=== PATIENT | female | born 1935 | race Caucasian/White ===

== ENCOUNTER 2017-09-27 19:02 | Emergency (ER) | payer OTHER ==
--- NOTE | 2017-09-27 19:43 | DR.GENAD ---
HPI - PCP Primary Care Physician: richar - HPI Comment HPI Comment: No hx trauma, pt states its been swollen for a long time. Pain only when pressed. 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 FINGER IS SWOLLEN AT THE KNUCKLE - Nurses notes reviewed Nurses Notes Review: Yes - Source History Provided: Patient, Group Home - Mode of Arrival Mode of Arrival: Wheelchair - Timing Onset of Chief Complaint: 09/25/17 Came on: Gradually - Duration Duration: Since Onset - Severity Severity: Moderate PMH - PMH Past Medical History: Yes Past Medical History: Arthritis, Dementia, Hypertension, Hypothyroidism Past Surgical History: Yes Surgical History: Hysterectomy, Ortho Surgery (RIGHT KNEE) - Family History History of Family Medical Conditions: Yes Family Medical History: Diabetes Mellitus - Social History Alcohol Use: None Do you use any recreational Drugs:: No Lives With: Other Lives Where: Group Home - infectious screening In the last 2 months have you had wt loss of >10#?: NO Have you had fever, night sweats or hemotysis?: No Have you traveled outside the country in the last 6 months?: No Isolation: Standard ROS - Review of Systems Constitutional: No Symptoms Reported Eyes: No Symptoms Reported ENTM: No Symptoms Reported Respiratoy: No Symptoms Reported Cardiovascular: No Symptoms Reported Gastrointestinal/Abdominal: No Symptoms Reported Genitourinary: No Symptoms Reported Neurological: No Symptoms Reported Musculoskeletal: No Symptoms Reported (of left index finger only), Joint Pain, Joint Swelling Integumentary: No Symptoms Reported Hematologic/Lymphatic: No Symptoms Reported Endocrine: No Symptoms Reported Psychiatric: No Symptoms Reported All Other Systems: Reviewed and Negative PE - Vital Signs Vitals: Temperature 98 F Pulse Rate 82 Respiratory Rate 18 Blood Pressure [Left Arm] 141/97 Blood Pressure [Right Arm] 150/87 Blood Pressure 106/73 O2 Sat by Pulse Oximetry 97 - General Limitations: No Limitations General Appearance: Alert, In No Apparent Distress - Head Head Exam: Normal Inspection - Eyes Eye exam: Normal Appearance - ENT ENT Exam: Normal Exam - Neck Neck Exam: Normal Inspection - Chest Chest Inspection: Normal Inspection - Respiratory Respiratory Exam: Normal Lung Sounds Bilat Respiratory Exam: Bilateral Clear to Auscultation - Cardiovascular Cardiovascular Exam: Regular Rate - Abdominal Exam Abdominal Exam: Normal Inspection, Normal Bowel Sounds, Soft - Extremities Extremities Exam: Joint Swelling (base of left finger(prox phalynx) markedly swollen and tender to touch. No lac, good cap refill of this finger) - Neurologic Neurological Exam: Alert, Oriented X3 (good historian) - Skin Skin Exam: Warm, Dry, Intact, Normal Color ROR - Labs Reviewed Laboratory Results Reviewed?: Yes (CBC earlier today, normal WBC. Uric acid tonight high at 10.3) Laboratory: Uric Acid 10.3 mg/dL (2.6-6.0) H 09/27/17 19:30 - XRAY XRAY Interpreted by: Radiologist (left hand xray done this am. Cystic lesion with cortical expansion prox phalynx left index finger. ? enchondroma w/ occult fx vs bone infection noted by rad. MRI recommended) - Diagnosis Discharge Problem: Gout - Discharge Plan Disposition: 64 DIS/XFER TO MEDICAID NURS Condition: Stable - Follow ups/Referrals Follow ups/Referrals: Dylan Vasquez [Primary Care Provider] - 3 days - Instructions Additional Instructions: See regular doctor about having MRI of your hand arranged Additional Notes - Additional Notes Additional Notes: Pt still needs MRI left hand to r/o osteomyleitis
[2017-09-27 20:33] VITALS: BP 114/56
== END 2017-09-27 20:43 ==
LOC: ER 19:23 → SUPCPDRO 19:23 → ER 20:43
DX: M10.9 Gout, unspecified (principal)
CPT/HCPCS: 36415; 73130; 80053; 84443; 84550; 85025; 99282

== ENCOUNTER → 2017-09-30 | Outpatient (CLI) | payer OTHER ==
[2017-09-27 20:33] VITALS: BP 114/56
== END ==
LOC: RAD 14:39
PROVIDERS: ATTEND Internal Medicine
DX: R22.32 Localized swelling, mass and lump, left upper limb (principal); M26.52 Limited mandibular range of motion

== ENCOUNTER 2017-10-31 10:15 | Observation (INO) | payer OTHER ==
[2017-10-31] MEDS ORDERED: NS 1000 ML 1,000 ML ONE (10:19)
--- NOTE | 2017-10-31 10:41 | DR.UPDATE ---
H&P Update History and Physical Update: WAS SEEN IN THE OFFICE ON 10/30/2017. A H&P WAS COMPLETED PRIOR TO ADMISSION. PATIENT HAS BEEN SEEN AND EXAMINED WITH NO CHANGES NOTED TO H&P. Changes noted: NO Yes with the following:
[2017-10-31] MEDS: NS 1000 ML 1,000 ML IV SCH (11:04)
[2017-10-31 11:14] LABS: BASOPHILS # (AUTO) 0.1 X10^3/uL (0.0-0.1); BASOPHILS % (AUTO) 1.2 % (0.2-1.0); EOSINOPHILS # (AUTO) 0.3 x10^3/uL (0.0-0.2); EOSINOPHILS % (AUTO) 6.1 % (0.9-2.9); HEMATOCRIT 41.4 % (36.0-47.0); HEMOGLOBIN 13.9 g/dL (12.0-16.0); LYMPHOCYTES # (AUTO) 0.9 X10^3/uL (1.3-2.9); LYMPHOCYTES % (AUTO) 16.9 % (21.0-51.0); MEAN CORPUSCULAR HEMOGLOBIN 29.5 pg (27.0-34.0); MEAN CORPUSCULAR HGB CONC 33.5 g/dL (33.0-35.0); MEAN CORPUSCULAR VOLUME 87.8 fL (80.0-100.0); MEAN PLATELET VOLUME 7.2 fL (7.4-11.0); MONOCYTES # (AUTO) 0.5 x10^3/uL (0.3-0.8); MONOCYTES % (AUTO) 8.3 % (0.0-13.0); NEUTROPHILS # (AUTO) 3.8 x10^3/uL (2.2-4.8); NEUTROPHILS % (AUTO) 67.5 % (42.0-75.0); PLATELET COUNT 183 X10^3/uL (150.0-450.0); RED BLOOD COUNT 4.71 X10^6/uL (3.5-5.4); RED CELL DISTRIBUTION WIDTH 15.8 % (11.6-16.5); WHITE BLOOD COUNT 5.6 X10^3/uL (3.6-10.0)
[2017-10-31 11:22] LABS: ALANINE AMINOTRANSFERASE 22 Units/L (12-78); ALKALINE PHOSPHATASE 86 Units/L (46-116); ASPARTATE AMINO TRANSFERASE 21 Units/L (15-37); BLOOD UREA NITROGEN 28 mg/dL (7-18); CALCIUM 8.5 mg/dL (8.5-10.1); CARBON DIOXIDE 25.9 mmol/L (21-32); CHLORIDE 105 mmol/L (98-107); COR CA(FOR HYPOALB) 9.3 mg/dL (8.5-10.1); CREATININE 1.45 mg/dL (0.55-1.02); SODIUM 139 mmol/L (136-145); TOTAL PROTEIN 6.4 g/dL (6.4-8.2); eGFR BLACK RACES 44 (>60); eGFR NON BLACK RACES 37 (>60)
[2017-10-31 11:56] VITALS: BMI 32.6
[2017-10-31] MEDS ORDERED: MAGNESIUM SULFATE 1 GM/100 mL PREMIX 1 GM/100 ML BAG IV PRN (12:17)
[2017-10-31] MEDS ORDERED: POTASSIUM CHL 60 MEQ/NS 0.45% 500 ML IV PRN (12:17)
[2017-10-31] MEDS ORDERED: K-RIDER 10 MEQ/NS 100 ML 10 MEQ/100 ML BAG IV PRN (12:17)
[2017-10-31] MEDS ORDERED: POTASSIUM CHLORIDE LIQ 20 MEQ UDC PO PRN (12:17)
[2017-10-31] MEDS ORDERED: POTASSIUM CHL 40 MEQ/NS 0.45% 500 ML IV PRN (12:17)
[2017-10-31] MEDS ORDERED: MAG-OX TAB PO PRN (12:17)
[2017-10-31] MEDS: COLCRYS TAB 0.6 MG PO SCH ×2 (12:44→21:28)
[2017-10-31] MEDS: K-LYTE EFFERVESCENT PO PRN (12:45)
[2017-10-31 13:13] LABS: BILIRUBIN,URINE NEGATIVE (NEGATIVE); BLOOD/HEMOGLOBIN,URINE 2+ (NEGATIVE); GLUCOSE, URINE NEGATIVE (NEGATIVE); KETONES,URINE NEGATIVE (NEGATIVE); LEUKOCYTE ESTERASE ,URINE 3+ (NEGATIVE); NITRITES,URINE POSITIVE (NEGATIVE); PROTEIN,URINE 1+ (NEGATIVE); UROBILINOGEN,URINE NORMAL (NORMAL)
[2017-10-31 13:24] LABS: APPEARANCE,URINE CLOUDY (CLEAR); BACTERIA,URINE 2+ /HPF (NEGATIVE); COLOR,URINE YELLOW (YELLOW); SQUAMOUS EPITHELIAL CELL,UR RARE /HPF (NEGATIVE)
[2017-10-31] MEDS: KLONOPIN TAB 0.5 MG PO SCH (21:28)
[2017-10-31] MEDS: ARICEPT TAB 10 MG PO SCH (21:28)
[2017-11-01] MEDS: NS 1000 ML 1,000 ML IV SCH ×2 (01:54→13:34)
[2017-11-01 06:03] LABS: EOSINOPHILS # (AUTO) 0.2 x10^3/uL (0.0-0.2); HEMATOCRIT 39.7 % (36.0-47.0); HEMOGLOBIN 13.7 g/dL (12.0-16.0); LYMPHOCYTES # (AUTO) 0.9 X10^3/uL (1.3-2.9); LYMPHOCYTES % (AUTO) 18.8 % (21.0-51.0); MEAN CORPUSCULAR HGB CONC 34.6 g/dL (33.0-35.0); MEAN CORPUSCULAR VOLUME 86.8 fL (80.0-100.0); MEAN PLATELET VOLUME 7.2 fL (7.4-11.0); MONOCYTES # (AUTO) 0.5 x10^3/uL (0.3-0.8); MONOCYTES % (AUTO) 10.6 % (0.0-13.0); NEUTROPHILS % (AUTO) 64.6 % (42.0-75.0); PLATELET COUNT 170 X10^3/uL (150.0-450.0); RED BLOOD COUNT 4.57 X10^6/uL (3.5-5.4); RED CELL DISTRIBUTION WIDTH 15.4 % (11.6-16.5); WHITE BLOOD COUNT 4.7 X10^3/uL (3.6-10.0)
[2017-11-01 06:36] LABS: ALANINE AMINOTRANSFERASE 22 Units/L (12-78); ALBUMIN 2.9 g/dL (3.4-5.0); ALKALINE PHOSPHATASE 83 Units/L (46-116); ASPARTATE AMINO TRANSFERASE 21 Units/L (15-37); BLOOD UREA NITROGEN 18 mg/dL (7-18); CALCIUM 8.7 mg/dL (8.5-10.1); CARBON DIOXIDE 25.6 mmol/L (21-32); CHLORIDE 106 mmol/L (98-107); COR CA(FOR HYPOALB) 9.6 mg/dL (8.5-10.1); CREATININE 1.15 mg/dL (0.55-1.02); MAGNESIUM 1.6 mg/dL (1.7-2.9); SODIUM 141 mmol/L (136-145); TOTAL PROTEIN 6.3 g/dL (6.4-8.2); eGFR BLACK RACES 58 (>60); eGFR NON BLACK RACES 48 (>60)
[2017-11-01] MEDS: K-LYTE EFFERVESCENT PO PRN (09:32)
[2017-11-01] MEDS: ROCEPHIN VIAL 1 GM 1 GM in NS 100 ML IV + SPIKE MINIBAG* 100 ML IV SCH ×2 (09:33→13:35)
[2017-11-01] MEDS: COLCRYS TAB 0.6 MG PO SCH ×2 (09:38→20:43)
[2017-11-01] MEDS: KLONOPIN TAB 0.5 MG PO SCH (20:43)
[2017-11-01] MEDS: ARICEPT TAB 10 MG PO SCH (20:43)
[2017-11-02] MEDS: NS 1000 ML 1,000 ML IV SCH (04:52)
[2017-11-02 06:52] LABS: BASOPHILS # (AUTO) 0.1 X10^3/uL (0.0-0.1); BASOPHILS % (AUTO) 0.9 % (0.2-1.0); EOSINOPHILS # (AUTO) 0.3 x10^3/uL (0.0-0.2); EOSINOPHILS % (AUTO) 5.3 % (0.9-2.9); HEMATOCRIT 41.8 % (36.0-47.0); HEMOGLOBIN 14.2 g/dL (12.0-16.0); LYMPHOCYTES % (AUTO) 17.4 % (21.0-51.0); MEAN CORPUSCULAR VOLUME 88.3 fL (80.0-100.0); MEAN PLATELET VOLUME 7.3 fL (7.4-11.0); MONOCYTES # (AUTO) 0.6 x10^3/uL (0.3-0.8); MONOCYTES % (AUTO) 10.4 % (0.0-13.0); NEUTROPHILS # (AUTO) 3.7 x10^3/uL (2.2-4.8); PLATELET COUNT 198 X10^3/uL (150.0-450.0); RED BLOOD COUNT 4.73 X10^6/uL (3.5-5.4); RED CELL DISTRIBUTION WIDTH 15.2 % (11.6-16.5); WHITE BLOOD COUNT 5.6 X10^3/uL (3.6-10.0)
[2017-11-02 07:02] LABS: ALANINE AMINOTRANSFERASE 25 Units/L (12-78); ALBUMIN 3.1 g/dL (3.4-5.0); ALKALINE PHOSPHATASE 88 Units/L (46-116); ASPARTATE AMINO TRANSFERASE 22 Units/L (15-37); BLOOD UREA NITROGEN 14 mg/dL (7-18); CALCIUM 8.8 mg/dL (8.5-10.1); CARBON DIOXIDE 28.7 mmol/L (21-32); CHLORIDE 104 mmol/L (98-107); COR CA(FOR HYPOALB) 9.5 mg/dL (8.5-10.1); CREATININE 1.14 mg/dL (0.55-1.02); SODIUM 145 mmol/L (136-145); TOTAL PROTEIN 6.7 g/dL (6.4-8.2); eGFR BLACK RACES 59 (>60); eGFR NON BLACK RACES 49 (>60)
[2017-11-02] MEDS: ROCEPHIN VIAL 1 GM 1 GM in NS 100 ML IV + SPIKE MINIBAG* 100 ML IV SCH (08:51)
[2017-11-02] MEDS: COLCRYS TAB 0.6 MG PO SCH (08:51)
[2017-11-02] MEDS ORDERED: SYNTHROID 25 mcg TAB PO SCH (12:02)
[2017-11-02] MEDS ORDERED: NORCO 7.5/325 MG TAB PO PRN (12:04)
[2017-11-02] MEDS ORDERED: SYNTHROID 25 mcg TAB ONE (12:09)
[2017-11-02] MEDS ORDERED: ELAVIL PO SCH (13:00)
[2017-11-02 13:35] VITALS: BP 161/83
[2017-11-02] MEDS ORDERED: ELAVIL ONE (13:37)
[2017-11-02] MEDS ORDERED: PROTONIX TAB 40 MG PO SCH (21:00)
[2017-11-02] MEDS ORDERED: ASPIRIN EC 81 MG PO SCH (21:00)
[2017-11-02] MEDS ORDERED: COLACE CAP 100 MG PO SCH (21:00)
[2017-11-02] MEDS ORDERED: ZESTORETIC 10/ 12.5MG PO SCH (21:00)
[2017-11-02] MEDS ORDERED: MILK OF MAGNESIA PO SCH (21:00)
== END 2017-11-02 15:50 ==
LOC: ICU 10:15 → INTOOBSV 10:15 → ICU 11-01 10:10
PROVIDERS: ADMIT Internal Medicine; ATTEND Internal Medicine
DX: E86.0 Dehydration (principal); E87.6 Hypokalemia; I10 Essential (primary) hypertension; M10.9 Gout, unspecified; E03.8 Other specified hypothyroidism; F03.90 Unspecified dementia, unspecified severity, without behavioral disturbance, psychotic disturbance, mood disturbance, and anxiety; K21.9 Gastro-esophageal reflux disease without esophagitis; B96.29 Other Escherichia coli [E. coli] as the cause of diseases classified elsewhere; R94.4 Abnormal results of kidney function studies; R26.89 Other abnormalities of gait and mobility
CPT/HCPCS: 36415; 80053; 81001; 83735; 84550; 85025; 87086; 87088; 87186; A4222; G8978; G8979; G8987; G8988; G0378; J0696

== ENCOUNTER 2019-01-30 15:35 | Inpatient (IN) ==
--- NOTE | 2019-01-30 15:44 | DR.URIAD ---
HPI Time Seen Time Seen by Provider: 01/30/19 15:35 HPI Comment HPI Comment: PATIENT IS 84YR OLD WHITE FEMALE FROM THE [place] WITH INCREASING OF SOB Complaint Chief Complaint Doctors Comments: INCREASING SOB. Reviewed Nurses Notes Reviewed: Yes Source History Provided: [facility] Mode of Arrival Mode of Arrival: Stretcher PMH [facility] Past Surgical History: Yes Surgical History: Hysterectomy and Joint Replacement Family History Family Medical History: Diabetes Mellitus Social History Do you use any recreational Drugs:: No PE Vital Signs Vitals: Blood Pressure [Left Arm] 161/83 Blood Pressure [Right Arm] 112/71 Blood Pressure 123/69
[2019-01-30] MEDS ORDERED: SOLU-Medrol 125 MG VIAL IVP ONE (15:47)
[2019-01-30] MEDS ORDERED: LASIX IVP ONE (15:47)
[2019-01-30] MEDS ORDERED: DUONEB 0.5 MG/3 MG NEB ONE (15:49)
[2019-01-30 15:51] LABS: ABG BASE EXCESS -14.9 mmol/L (-2.0-2.0)
[2019-01-30 15:52] LABS: ABG HCO3 13.6 mmol/L (22-26)
[2019-01-30 15:57] LABS: BASOPHILS # (AUTO) 0.1 X10^3/uL (0.0-0.1); BASOPHILS % (AUTO) 0.6 % (0.2-1.0); EOSINOPHILS # (AUTO) 0.2 x10^3/uL (0.0-0.2); EOSINOPHILS % (AUTO) 1.5 % (0.9-2.9); HEMATOCRIT 48.4 % (36.0-47.0); HEMOGLOBIN 15.6 g/dL (12.0-16.0); LYMPHOCYTES # (AUTO) 4.2 X10^3/uL (1.3-2.9); LYMPHOCYTES % (AUTO) 30.7 % (21.0-51.0); MEAN CORPUSCULAR HEMOGLOBIN 31.5 pg (27.0-34.0); MEAN CORPUSCULAR HGB CONC 32.3 g/dL (33.0-35.0); MEAN CORPUSCULAR VOLUME 97.7 fL (80.0-100.0); MEAN PLATELET VOLUME 7.7 fL (7.4-11.0); MONOCYTES # (AUTO) 0.8 x10^3/uL (0.3-0.8); MONOCYTES % (AUTO) 6.1 % (0.0-13.0); NEUTROPHILS # (AUTO) 8.4 x10^3/uL (2.2-4.8); NEUTROPHILS % (AUTO) 61.1 % (42.0-75.0); PLATELET COUNT 217 X10^3/uL (150.0-450.0); RED BLOOD COUNT 4.95 X10^6/uL (3.5-5.4); RED CELL DISTRIBUTION WIDTH 16.4 % (11.6-16.5); WHITE BLOOD COUNT 13.7 X10^3/uL (3.6-10.0)
[2019-01-30] MEDS ORDERED: ADRENALINE CHL INJ ONE ×2 (16:26→16:27)
[2019-01-30] MEDS ORDERED: NS 250 ML IV 250 ML ONE (16:26)
[2019-01-30] MEDS ORDERED: ATROPINE SULFATE ABBOJECT IVP ONE (16:36)
[2019-01-30] MEDS ORDERED: ADRENALINE CHL INJ IVP ONE ×2 (16:37)
[2019-01-30 16:49] LABS: ALANINE AMINOTRANSFERASE 23 Units/L (12-78); ALBUMIN 3.7 g/dL (3.4-5.0); ALKALINE PHOSPHATASE 105 Units/L (46-116); ASPARTATE AMINO TRANSFERASE 19 Units/L (15-37); BLOOD UREA NITROGEN 27 mg/dL (7-18); CALCIUM 9.7 mg/dL (8.5-10.1); CHLORIDE 104 mmol/L (98-107); CKMB % 2.9 % (<4); COR NA(FOR HYPERGLY) 144 mmol/L (136-145); CREATINE KINASE 35 Units/L (26-192); CREATINE KINASE MB < 1.0 ng/mL (0-4.0); CREATININE 1.62 mg/dL (0.55-1.02); SODIUM 138 mmol/L (136-145); TOTAL PROTEIN 6.8 g/dL (6.4-8.2); TROPONIN I 0.06 ng/mL (0-1.5); eGFR NON BLACK RACES 32 (>60)
[2019-01-30 16:56] LABS: CARBON DIOXIDE 14.3 mmol/L (21-32)
--- NOTE | 2019-01-30 17:18 | RAD ---
HISTORY: Endotracheal tube placement Study: Single view of the chest. Comparison: 01/30/2019 Findings: The cardiomediastinal silhouette is normal. No focal consolidations, pleural effusions or pneumothorax. Endotracheal tube is less than 1 cm from haritha and appears to be angled toward the right mainstem bronchus. Findings of COPD IMPRESSION: 1. Findings suggestive of near intubation of the right mainstem bronchus. Recommend retraction at least 2-3 cm. Reported By:
--- NOTE | 2019-01-30 17:25 | RAD ---
HISTORY: 84-year-old female with shortness of breath. Study: Frontal view of the chest. Comparison: Chest radiographs 01/30/2019 Findings: The trachea is midline. The cardiac silhouette is stably enlarged with chronic prominence interstitium and perihilar lung markings and low lung volumes. Large hiatal hernia. Soft tissues are unremarkable. Osseous structures are unremarkable. IMPRESSION: 1. Chronic cardiomegaly and findings suggesting COPD with low lung volumes, correlate clinically for underlying infection. 2. Large hiatal hernia. Reported By:
[2019-01-30 17:42] LABS: BILIRUBIN,URINE NEGATIVE (NEGATIVE); BLOOD/HEMOGLOBIN,URINE 2+ (NEGATIVE); GLUCOSE, URINE NEGATIVE (NEGATIVE); KETONES,URINE NEGATIVE (NEGATIVE); LEUKOCYTE ESTERASE ,URINE 2+ (NEGATIVE); NITRITES,URINE POSITIVE (NEGATIVE); PROTEIN,URINE 1+ (NEGATIVE); UROBILINOGEN,URINE NORMAL (NORMAL)
[2019-01-30 17:44] LABS: APPEARANCE,URINE CLOUDY (CLEAR); COLOR,URINE YELLOW (YELLOW)
[2019-01-30 17:50] LABS: AMORPHOUS SEDIMENT,UR 2+ /HPF (NEGATIVE); BACTERIA,URINE 3+ /HPF (NEGATIVE); SQUAMOUS EPITHELIAL CELL,UR RARE /HPF (NEGATIVE)
[2019-01-30] MEDS ORDERED: NS 1000 ML 1,000 ML IV ONE (17:56)
[2019-01-30] MEDS ORDERED: NS 1000 ML 0 ML ONE (21:06)
[2019-01-31] MEDS ORDERED: MORPHINE SULFATE INJ 2 MG INJ IVP ONE (03:30)
[2019-01-31] MEDS ORDERED: MORPHINE SULFATE INJ 2 MG INJ ONE (03:32)
[2019-01-31] MEDS ORDERED: MORPHINE SULFATE INJ 2 MG INJ IVP PRN (04:12)
[2019-01-31] MEDS: MORPHINE SULFATE PCA 30 MG IVP SCH ×9 (11:30→23:15)
[2019-01-31] MEDS: VERSED 100 MG in NS 100 ML IV 80 ML IV PRN (11:41)
--- NOTE | 2019-01-31 18:30 | DR.H&P ---
H&P - History & Physical for Day of: H&P Date: 01/30/19 - Chief Complaint Chief Complaint: SOB, HYPOXIA, CARDIOPULMONARY ARREST - History of Present Illness History of Present Illness: IS A 84 YEAR OL PATIENT OF OURS WHO IS A RESIDENT OF [facility]. SHE PRESENTED TO THE ER WITH COMPLAINTS OF SHORTNESS OF BREATH AND OXYGEN SATURATIONS IN THE 60S. SHE WAS NOTED TO BE PALE, CYANOTIC, AND RAPID RESPIRATIONS. SHE WAS NOTED WITH EXPIRATORY WHEEZING AND RHONCHI TO AUSCULTATION. ON ARRIVAL, VITALS WERE 95.9-20-110-66%-135/92. LABS WERE OBTAINED. ABNORMAL LAB VALUES INCLUDE THE FOLLOWING: WBC 13.7, HCT 48.4, CARBON DIOXIDE 14.3, BUN 27, CREATININE 162, GLUCOSE 345. URINALYSIS REVEALED: WBC 30-50, RBC 3-5, LEUKOCYTEES 2+, BACTERIA 3+. AN ABG WAS OBTAINED AND REVEALED: PH 7.130, PC02 41.0, P02 42.0, HC03 13.6, 02 SATURATION 59.0. AT APPROXIMATELY 1608, PATIENT WAS NOTED TO BE UNRESPONSIVE AND WITHOUT PULSE. CPR WAS STARTED AND PATIENT WAS INTUBATED. AFTER SPEAKING WITH FAMILY, FAMILY SIGNED DNR AND WISHED FOR PATIENT TO BE KEPT COMFORTABLE. CPR WAS STOPPED AND PATIENT WAS EXTUBATED. SHE WAS ADMITTED TO THE HOSPITAL FOR COMFORT MEASURES AFTER SUFFERING CARDIOPULMONARY ARREST. SHE WAS STARTED ON MORPHINE 2MG IV Q1H PRN PAIN. WE PLAN TO CONTINUE TO MONITOR PATIENT. - Past Medical History Past Medical History: Arthritis, Dementia, Hypertension, Hypothyroidism Additional Medical History: LUMBAGO, MYALGIA AND MYOSITIS - Past Surgical History Surgical History: Hysterectomy, Joint Replacement - Family History Family Medical History: Diabetes Mellitus - Social History Does patient currently use any type of tobacco product: No Have you used tobacco products in the last 12 months: No Type of Tobacco Use: None Does any household member use tobacco: No Alcohol Use: None Drug Use: None - Medications Home Medications: No Known Drug Allergies Allergy (Verified 01/30/19 17:46) CONTINUE taking the following medications allopurinol 100 mg PO HS 01/31/19 [History] food supplemt, lactose-reduced [Ensure Enlive] 1 bottle PO BID 01/31/19 [Hi story] hydrocodone-acetaminophen 1 tab PO Q8H PRN 01/31/19 [History] levothyroxine 50 mcg PO DAILY 01/31/19 [History] loratadine 10 mg PO DAILY 01/31/19 [History] megestrol 40 mg PO BID 01/31/19 [History] rynfnbjdsesy-nwn-kjwj-FA-vit K [Multi-Day Plus Minerals] 1 tab PO DAILY 01/31/19 [History] nystatin 1 applic TOPICAL Q8H PRN 01/31/19 [History] potassium chloride 20 meq PO DAILY 01/31/19 [History] quetiapine 25 mg PO BID 01/31/19 [History] - Review of Systems Constitutional: Weakness Eyes: No Symptoms Reported ENT: No Symptoms Reported Respiratory: Shortness of Breath Cardiovascular: No Symptoms Reported Gastrointestinal: No Symptoms Reported Genitourinary: No Symptoms Reported Musculoskeletal: No Symptoms Reported Skin: No Symptoms Reported Neurological: Weakness - Physical Exam Vital Signs: Temperature 98.8 F Pulse Rate [Left Brachial] 80 Pulse Rate 120 Respiratory Rate 14 Blood Pressure [Left Arm] 125/88 Blood Pressure [Right Arm] 112/71 Blood Pressure 135/92 O2 Sat by Pulse Oximetry 89 Oriented: Unable to test Eyes: Normal Nose: Normal Throat: Normal Respiratory: Diminished Throughout, Rhonchi Throughout Cardiovascular: Tachycardia : Normal Auscultation: Bowel Sounds: Normal Palpation: Normal Tenderness: Normal Skin: Normal Musculoskeletal: Normal Psychiatric: Normal Mood Description: Calm Affect: Normal Speech Pattern: Clear - Allergies Allergies/Adverse Reactions: Allergies Allergy/AdvReac Type Severity Reaction Status Date / Time No Known Drug Allergies Allergy Verified 01/30/19 17:46
[2019-02-01] MEDS: MORPHINE SULFATE PCA 30 MG IVP SCH ×6 (05:03→16:35)
[2019-02-01] MEDS: VERSED 100 MG in NS 100 ML IV 80 ML IV PRN ×2 (07:47→14:35)
[2019-02-01 10:06] VITALS: BMI 30.4
[2019-02-01] MEDS ORDERED: NS 100 ML IV 100 ML ONE (14:32)
[2019-02-01] MEDS ORDERED: DURAGESIC 100 mcg/HR PATCH TD SCH (16:00)
[2019-02-01 16:11] VITALS: BP 75/48
--- NOTE | 2019-02-01 17:52 | PCM.PROG ---
Progress Note - Progress Note for Day of Date of Exam: 01/31/19 - Subjective Subjective: WAS ADMITTED FOR COMFORT MEASURES AFTER CARDIOPULMONARY ARREST. SHE WAS STARTED ON MORPHINE 2MG IV Q1H PRN PAIN. TODAY, SHE IS LYING IN BED WITH EYES CLOSED ON MORNING ROUNDS. FAMILY REPORTS THAT PATIENT HAS MOANED WHEN SHE HAS BEEN MOVED AND THEY BELIEVE THAT SHE MAY BE IN PAIN. ON EXAMINATION, HEART IS REGULAR IN RATE AND RHYTHM. BILATERAL LUNGS ARE NOTED WITH DIMINISHED LUNG SOUNDS THROUGHOUT. ABDOMEN ROUND, SOFT, AND NON-TENDER. HYPERACTIVE BOWEL SOUNDS NOTED. HER VITALS THIS MORNING ARE 98.5-83-1-93%-132/87. TODAY, WE WILL START HER ON A VERSED DRIP AT 4MG/HR AND INCREASE MORPHINE TO 4MG/HR DRIP FOR COMFORT. HER FAMILY IS IN AGREEMENT WITH PLAN. OTHERWISE, WE WILL CONTINUE TO MONITOR HER TODAY. - Past Medical Family Social History Past Med/Fam/Surg Hx: No changes since H&P Allergies: Allergies No Known Drug Allergies Allergy (Verified 01/30/19 17:46) - Review of Systems ROS: No change since H&P - Vital Signs and I&O's Vital Signs: Temperature 100.1 F Pulse Rate [Left Brachial] 97 Pulse Rate 120 Respiratory Rate 18 Blood Pressure [Left Arm] 75/48 Blood Pressure [Right Arm] 112/71 Blood Pressure 135/92 O2 Sat by Pulse Oximetry 73 Intake and Output: Intake & Output 01/30/19 01/31/19 02/01/19 02/02/19 11:59 11:59 11:59 11:59 Intake Total 0 / 0 150 / 150 50 / 50 Output Total 500 / 500 250 / 250 10 / 10 Balance -500 / -500 -100 / -100 40 / 40 - Physical Exam Oriented: Unable to test Eyes: Normal Nose: Normal Throat: Normal Respiratory: Generalized, Diminished Cardiovascular: Normal : Normal Auscultation: Bowel Sounds: Decreased Palpation: Normal Tenderness: Normal Skin: Normal Musculoskeletal: Normal Speech Pattern: Aphasic - Laboratory and Diagnostics Result Diagrams: 01/30/19 15:46 01/30/19 15:46 Labs: 01/30/19 16:54 Urine,Catheterized Urine Culture - Final Escherichia Coli Laboratory WBC 13.7 X10^3/uL (3.6-10.0) H 01/30/19 15:46 RBC 4.95 X10^6/uL (3.5-5.4) 01/30/19 15:46 Hgb 15.6 g/dL (12.0-16.0) 01/30/19 15:46 Hct 48.4 % (36.0-47.0) H 01/30/19 15:46 MCV 97.7 fL (80.0-100.0) 01/30/19 15:46 MCH 31.5 pg (27.0-34.0) 01/30/19 15:46 MCHC 32.3 g/dL (33.0-35.0) L 01/30/19 15:46 RDW 16.4 % (11.6-16.5) 01/30/19 15:46 Plt Count 217 X10^3/uL (150.0-450.0) 01/30/19 15:46 MPV 7.7 fL (7.4-11.0) 01/30/19 15:46 Neut % (Auto) 61.1 % (42.0-75.0) 01/30/19 15:46 Lymph % (Auto) 30.7 % (21.0-51.0) 01/30/19 15:46 Gooding % (Auto) 6.1 % (0.0-13.0) 01/30/19 15:46 Eos % (Auto) 1.5 % (0.9-2.9) 01/30/19 15:46 Baso % (Auto) 0.6 % (0.2-1.0) 01/30/19 15:46 Neut # (Auto) 8.4 x10^3/uL (2.2-4.8) H 01/30/19 15:46 Lymph # (Auto) 4.2 X10^3/uL (1.3-2.9) H 01/30/19 15:46 Gooding # (Auto) 0.8 x10^3/uL (0.3-0.8) 01/30/19 15:46 Eos # (Auto) 0.2 x10^3/uL (0.0-0.2) 01/30/19 15:46 Baso # (Auto) 0.1 X10^3/uL (0.0-0.1) 01/30/19 15:46 Absolute Nucleated RBC 0.1 /100WBC 01/30/19 15:46 Sample Site Left brachial 01/30/19 15:42 ABG pH 7.130 (7.35-7.45) L* 01/30/19 15:42 ABG pCO2 41.0 mmHg (35.0-45.0) 01/30/19 15:42 ABG pO2 42.0 mmHg (80.0-100.0) L* 01/30/19 15:42 ABG HCO3 13.6 mmol/L (22-26) L* 01/30/19 15:42 ABG O2 Saturation 59.0 % (90-100) L* 01/30/19 15:42 ABG Base Excess -14.9 mmol/L (-2.0-2.0) L 01/30/19 15:42 Dominic Test Na 01/30/19 15:42 A-a Gradient 620.0 mmHg 01/30/19 15:42 FiO2 100.0 01/30/19 15:42 Blood Gas Comments Renetta well aw 01/30/19 15:42 Sodium 138 mmol/L (136-145) 01/30/19 15:46 Corrected Sodium 144 mmol/L (136-145) 01/30/19 15:46 Potassium 4.6 mmol/L (3.5-5.1) 01/30/19 15:46 Chloride 104 mmol/L (98-107) 01/30/19 15:46 Carbon Dioxide 14.3 mmol/L (21-32) L* 01/30/19 15:46 BUN 27 mg/dL (7-18) H 01/30/19 15:46 Creatinine 1.62 mg/dL (0.55-1.02) H 01/30/19 15:46 Est GFR (MDRD) Af Amer 39 (>60) L 01/30/19 15:46 Est GFR (MDRD) Non-Af 32 (>60) L 01/30/19 15:46 Glucose 345 mg/dL (65-99) H 01/30/19 15:46 Lactic Acid Cancelled 01/30/19 15:46 Calcium 9.7 mg/dL (8.5-10.1) 01/30/19 15:46 Corrected Calcium TNP 01/30/19 15:46 Total Bilirubin 0.50 mg/dL (0.2-1.0) 01/30/19 15:46 AST 19 Units/L (15-37) 01/30/19 15:46 ALT 23 Units/L (12-78) 01/30/19 15:46 Alkaline Phosphatase 105 Units/L (46-116) 01/30/19 15:46 Creatine Kinase 35 Units/L (26-192) 01/30/19 15:46 CK-MB (CK-2) < 1.0 ng/mL (0-4.0) 01/30/19 15:46 CK/CKMB % Calc 2.9 % (<4) 01/30/19 15:46 Troponin I 0.06 ng/mL (0-1.5) 01/30/19 15:46 C-Reactive Protein 0.60 mg/L (0-3.0) 01/30/19 15:46 Total Protein 6.8 g/dL (6.4-8.2) 01/30/19 15:46 Albumin 3.7 g/dL (3.4-5.0) 01/30/19 15:46 Globulin 3.1 g/dL (2.5-4.5) 01/30/19 15:46 Albumin/Globulin Ratio 1.2 Ratio (1.1-2.1) 01/30/19 15:46 Specimen Type Catherized urine 01/30/19 16:54 Urine Color Yellow (YELLOW) 01/30/19 16:54 Urine Appearance Cloudy (CLEAR) 01/30/19 16:54 Urine pH 6.0 (5.0 - 8.0) 01/30/19 16:54 Ur Specific Avery 1.020 (1.000-1.030) 01/30/19 16:54 Urine Protein 1+ (NEGATIVE) 01/30/19 16:54 Urine Glucose (UA) Negative (NEGATIVE) 01/30/19 16:54 Urine Ketones Negative (NEGATIVE) 01/30/19 16:54 Urine Occult Blood 2+ (NEGATIVE) 01/30/19 16:54 Urine Nitrite Positive (NEGATIVE) 01/30/19 16:54 Urine Bilirubin Negative (NEGATIVE) 01/30/19 16:54 Urine Urobilinogen Normal (NORMAL) 01/30/19 16:54 Ur Leukocyte Esterase 2+ (NEGATIVE) 01/30/19 16:54 Urine RBC 3-5 /HPF (NONE SEEN) 01/30/19 16:54 Urine WBC 30-50 /HPF (NONE SEEN) 01/30/19 16:54 Ur Squamous Epith Cells Rare /HPF (NEGATIVE) 01/30/19 16:54 Amorphous Sediment 2+ /HPF (NEGATIVE) 01/30/19 16:54 Urine Bacteria 3+ /HPF (NEGATIVE) 01/30/19 16:54 Ur Culture Indicated? Yes/culture set up 01/30/19 16:54 - Plan (1) Palliative care status Status: Acute Plan: VERSED 4MG/HR DRIP, MORPHINE 4MG/HR DRIP, CONTINUE TO MONITOR
== END 2019-02-01 19:20 | disposition expired | DRG 298 ==
LOC: ER 15:35 → MED/SURG 18:00
PROVIDERS: ADMIT Internal Medicine; ATTEND Internal Medicine
DX: I10 Essential (primary) hypertension; E11.65 Type 2 diabetes mellitus with hyperglycemia; R06.02 Shortness of breath; Z66 Do not resuscitate; R94.4 Abnormal results of kidney function studies; R94.31 Abnormal electrocardiogram [ECG] [EKG]; E03.8 Other specified hypothyroidism; I46.9 Cardiac arrest, cause unspecified; Z51.5 Encounter for palliative care
CPT/HCPCS: 31500; 36415; 36600; 51702; 71010; 71045; 80053; 81001; 82550; 82553; 82803; 84484; 85025; 86140; 87086; 87088; 87186; 92950; 93005; 93041; 94640; 94760; 96365; 96374; 96375; 99284; A4216; A4222; A4618; A7030; J0171; J2250; J2270; J2271; J7050